=== PATIENT | male | born 1990 | race African-American/Black ===

== ENCOUNTER 2017-12-03 13:14 | Emergency (ER) | payer SELFPAY ==
[~2017-12-03] VITALS: Ht 188 cm; Wt 75.3 kg
[~2017-12-03 13:14] MED LIST: CLEOCIN300 MG PO; TRAMADOL HCL50 MG PO
[2017-12-03 15:22] VITALS: BP 128/75
== END 2017-12-03 15:22 | disposition home or self-care (01) ==
LOC: EME 13:14
DX: J02.9 Acute pharyngitis, unspecified (principal); R05 Cough; Z88.0 Allergy status to penicillin
CPT/HCPCS: 87651 90; 99281; 99284